=== PATIENT | female | born 1980 | race Two or more races ===

== ENCOUNTER 2018-05-07 03:14 | Emergency (ER) | payer OTHER ==
[~2018-05-07] VITALS: Ht 160 cm; Wt 98.0 kg
[2018-05-07] MEDS ORDERED: ULTRACET PO (06:37)
[2018-05-07] MEDS ORDERED: CLONAZEPAM1 MG PO (06:37)
== END 2018-05-07 06:41 | disposition home or self-care (01) ==
LOC: ER 03:14
DX: G44.40 Drug-induced headache, not elsewhere classified, not intractable (principal); T46.5X5A Adverse effect of other antihypertensive drugs, initial encounter; F06.4 Anxiety disorder due to known physiological condition